=== PATIENT | male | born 1985 | race Caucasian/White ===

== ENCOUNTER 2019-02-14 23:28 | Emergency (ER) | payer OTHER ==
--- NOTE | 2019-02-15 01:40 | XRay Report ---
PROCEDURE: XR ANKLE 2V LT TECHNIQUE: Left ankle radiographs, AP and lateral views. HISTORY: left ankle pain COMPARISONS: None . FINDINGS: Fracture (s) and/or Dislocation(s): There is no evidence of an acute fracture. There is arthritis wi th narrowing of joint spaces. Osseous remodeling of the talocalcaneal joint is noted. The findings ar e consistent with moderate arthritis . Alignment: Normal . Joint space(s): Moderate narrowing of the joint spaces . Soft tissues: Normal . Bone mineralization: Normal . Foreign bodies: None . Calcaneal spurring: None . IMPRESSION: There is no evidence of an acute fracture. There is moderate arthritis as discussed. . This document is electronically signed by Yaz Lopez DO., February 15 2019 01:37:58 AM ET
--- NOTE | 2019-02-15 01:41 | XRay Report ---
PROCEDURE: XR FOOT 2V LT TECHNIQUE: Left foot radiographs, AP and lateral views. HISTORY: left foot pain COMPARISONS: None . FINDINGS: Fracture (s) and/or Dislocation(s): None . Alignment: Normal . Joint space(s): There is moderate narrowing of the joint spaces. Osseous remodeling of the talocalca james joint is noted. . Soft tissues: Normal . Bone mineralization: Normal . Foreign bodies: None . Calcaneal spurring: None . IMPRESSION: There is no evidence of an acute fracture. Moderate arthritis . This document is electronically signed by Yaz Lopez DO., February 15 2019 01:39:25 AM ET
[2019-02-15] MEDS ORDERED: TORADOL IM ONE (05:38)
--- NOTE | 2019-02-15 06:50 | Emergency Department Report ---
ED Lower Extremity HPI - General Chief Complaint: Extremity Injury, Lower Stated Complaint: LEFT ANKLE PAIN Time Seen by Provider: 02/15/19 05:37 Source: patient Mode of arrival: Ambulatory Limitations: No Limitations, Language Barrier - History of Present Illness Initial Comments: This is a 33-year-old male who presents with left ankle pain and swelling states he twisted today running symptoms include pain swelling erythema no fever chills no nausea vomiting pain is7/ 10 MD Complaint: foot injury Onset/Timin -: Sudden Injury: Foot: Right Type of Injury: eversion Place: home Severity: moderate Severity scale (0 -10): 6 Improves With: nothing Worsens With: weight bearing, palpation Context: other (twisitng ) Associated Symptoms: swelling Treatments Prior to Arrival: bandage - Related Data Previous Rx's Medication Instructions Recorded Last Taken Type Cyclobenzaprine [Flexeril] 10 mg PO TID PRN #30 tablet 02/15/19 Unknown Rx Naproxen [Naprosyn] 500 mg PO BID PRN #30 tablet 02/15/19 Unknown Rx Allergies Allergy/AdvReac Type Severity Reaction Status Date / Time SRRI AdvReac Unknown Uncoded 02/15/19 00:54 ED Review of Systems ROS: Stated complaint: LEFT ANKLE PAIN Other details as noted in HPI Constitutional: denies: chills, fever Eyes: denies: eye pain, eye discharge, vision change ENT: denies: ear pain, throat pain Respiratory: denies: cough, shortness of breath, wheezing Cardiovascular: denies: chest pain, palpitations Endocrine: no symptoms reported Gastrointestinal: denies: abdominal pain, nausea, diarrhea Genitourinary: denies: urgency, dysuria Musculoskeletal: joint swelling (left lateral ankle ), myalgia. denies: back pain, arthralgia Skin: denies: rash, lesions Neurological: denies: headache, weakness, paresthesias Psychiatric: denies: anxiety, depression Hematological/Lymphatic: denies: easy bleeding, easy bruising ED Past Medical Hx - Past Medical History Previous Medical History?: Yes Additional medical history: Left Drop Foot - Surgical History Past Surgical History?: Yes Additional Surgical History: Tonsilectomy - Social History Smoking Status: Current Every Day Smoker Substance Use Type: Methamphetamines - Medications Home Medications: Home Medications Medication Instructions Recorded Confirmed Last Taken Type Cyclobenzaprine [Flexeril] 10 mg PO TID PRN #30 tablet 02/15/19 Unknown Rx Naproxen [Naprosyn] 500 mg PO BID PRN #30 tablet 02/15/19 Unknown Rx ED Physical Exam - General Limitations: No Limitations ED Course Vital Signs 02/15/19 00:47 Temperature 98 F Pulse Rate 97 H Respiratory 18 Rate Blood Pressure 134/68 O2 Sat by Pulse 97 Oximetry Critical care attestation.: If time is entered above; I have spent that time in minutes in the direct care of this critically ill patient, excluding procedure time. ED Disposition Clinical Impression: Fall Qualifiers: Encounter type: sequela Qualified Code(s): W19.XXXS - Unspecified fall, sequela High ankle sprain of left lower extremity Qualifiers: Encounter type: initial encounter Qualified Code(s): S93.432A - Sprain of tibiofibular ligament of left ankle, initial encounter Disposition: [id number]/TX-65 PSY HOSP/PSY UNIT Is pt being admited?: No Does the pt Need Aspirin: No Condition: Stable Instructions: Ankle Sprain (ED), Ankle Exercises (GEN) Prescriptions: Cyclobenzaprine [Flexeril] 10 mg PO TID PRN #30 tablet PRN Reason: Muscle Spasm Naproxen [Naprosyn] 500 mg PO BID PRN #30 tablet PRN Reason: pain Referrals: DANGELO CORBETT MD [Primary Care Provider] - 3-5 Days ANDERSON CHRISTENSEN MD [Staff Physician] - 3-5 Days Forms: Work/School Release Form(ED) Time of Disposition: 06:58
[2019-02-15 07:44] VITALS: BP 110/71
== END 2019-02-15 08:11 ==
LOC: ED 23:28
DX: S93.432A Sprain of tibiofibular ligament of left ankle, initial encounter (principal); F17.200 Nicotine dependence, unspecified, uncomplicated; F15.10 Other stimulant abuse, uncomplicated; X50.9XXA Other and unspecified overexertion or strenuous movements or postures, initial encounter; Y93.89 Activity, other specified; Y92.89 Other specified places as the place of occurrence of the external cause; Y99.8 Other external cause status
CPT/HCPCS: 29515; 73600; 73620; 99283; J1885